=== PATIENT | female | born 1940 | race Caucasian/White ===

== ENCOUNTER 2017-02-27 12:49 | Outpatient (CLI) | payer MEDICARE | END 2017-02-27 12:50 | disposition home or self-care (01) | LOC: NC 12:49 | PROVIDERS: ATTEND Nurse Practitioner Family | DX: I25.10 Atherosclerotic heart disease of native coronary artery without angina pectoris (principal); Z71.3 Dietary counseling and surveillance; E66.09 Other obesity due to excess calories; Z68.35 Body mass index [BMI] 35.0-35.9, adult; K21.9 Gastro-esophageal reflux disease without esophagitis; G89.29 Other chronic pain ==

== ENCOUNTER 2017-03-26 16:43 | Emergency (ER) | payer MEDICARE ==
[2017-03-26] MEDS ORDERED: IOPAMIDOL 370 (76%) IV.SOLN 150 ML IV ONE (16:44)
[2017-03-26] MEDS ORDERED: ASPIRIN CHEWTAB 81 MG TABLET ONE (17:13)
[2017-03-26 17:21] LABS: ABSOLUTE NEUTROPHIL COUNT 4.1 K/mm3 (1.8-7.7); BASO # 0.1 K/mm3 (0.0-0.2); BASO % 0.5 % (0.2-1.0); EOS # 0.3 (0.0-0.5); EOS % 2.5 % (0.9-2.9); HEMATOCRIT 44.2 % (37.0-47.0); HEMOGLOBIN 14.2 gm/l (12.0-16.0); IMM NEUT% 0.2 % (0-1); LYMPH # 6.6 (1.0-4.8); LYMPH % 55.2 % (15-45); MEAN CELL VOLUME 90.2 fl (81.0-99.0); MEAN CORPUSCULAR HGB CONC 32.1 g/dl (33.0-37.0); MEAN PLATELET VOLUME 9.9 fl (7.4-10.4); MONO # 0.9 (0.0-0.8); MONO % 7.7 % (4-12); NEUT % 33.9 % (43-75); PLATELET COUNT 238 K/mm3 (130-400); RED CELL DISTRIBUTION WIDTH 12.8 % (11.5-14.5)
[2017-03-26 17:31] LABS: ALB/GLOB RATIO 1.8 (>1.0); CALCIUM 9.9 mg/dL (8.6-10.3); MAGNESIUM 1.9 mg/dL (1.9-2.7)
[2017-03-26 17:37] LABS: TROPONIN I < 0.01 ng/ml (0.0-0.06)
[2017-03-26 17:40] LABS: CKMB ISOENZYME 1.7 ng/ml (0.6-6.3)
--- NOTE | 2017-03-26 19:29 | CT ---
CHEST ABDOMEN PELVIS CT WITH CONTRAST HISTORY: Chest pain, history of aortic aneurysm, assess for dissection. TECHNIQUE: Following the administration of 150 mL of Isovue-300 70 intravenous contrast, contiguous axial images were acquired from the thoracic inlet to the ischial tuberosities. MIP reconstruction imaging was performed. COMPARISON: 01/15/2017. FINDINGS: THORAX LUNGS: Minor groundglass abnormality which may simply reflect atelectatic change no gross airspace disease or pleural effusion.. ELVIS AND MEDIASTINUM: Aneurysmal dilatation of the ascending aorta, up to 5.0 cm in size, measuring up to 4.7 cm in size previously. Taking into account cardiac motion artifact. No dissection flap is noted minor atherosclerotic calcifications are noted. Ascending thoracic aortic caliber is 3.5 cm in width. No grossly enlarged lymph nodes are evident.. Normal enhancement of proximal order pulmonary arteries. AXILLAE: Redemonstration of multiple axillary lymph nodes the largest of which measures 1.8 cm on the left.. SUPRACLAVICULAR FOSSAE: No enlarged lymph nodes. ABDOMEN AND PELVIS LIVER AND SPLEEN: No focal lesion detected. ADRENAL GLANDS AND PANCREAS: Fatty left adrenal adenoma, stable appearance. KIDNEYS: Minor exophytic cyst formation, up to 16 mm in size on the right, 9 mm in size on the left. No gross collecting system dilatation. GALLBLADDER: Present. BOWEL: Findings of colonic diverticulosis without features of diverticulitis. No abnormal small bowel dilatation. Normal partially gas-filled appendix . PELVIC ORGANS: No gross mass effect. FREE FLUID: No gross free fluid identified. ABDOMINOPELVIC LYMPH NODES: No abnormally enlarged lymph nodes identified. ABDOMINAL AORTA: Tortuous, ectatic abdominal aorta and common iliac arteries without eric aneurysmal dilatation, maximal aortic caliber is approximately 2.9 cm in width. No dissection flap. Minor atherosclerotic calcifications. 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 With multilevel canal stenosis most notable at L3-4 and L4-5 levels. IMPRESSION: 1. Aneurysmal dilatation of the ascending aorta up to 5.0 cm in size without evidence of dissection. Abdominal aortic ectasia without aneurysmal dilatation. 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 2. No gross airspace disease. 3. Additional incidental findings including features of colonic diverticulosis, small renal cysts, and features of lumbar spondylosis. Results were electronically transmitted to the electronic medical record at 03/26/2017 at 1924 hours.
[2017-03-26] MEDS ORDERED: AMLODIPINE BESYLATE 5 MG TABLET ONE (19:55)
[2017-03-26 20:38] LABS: URINE BILIRUBIN NEGATIVE (NEGATIVE); URINE BLOOD NEGATIVE (NEGATIVE); URINE GLUCOSE (UA) NEGATIVE (NEGATIVE); URINE LEUKOCYTE ESTERASE 1+ (NEGATIVE); URINE NITRITE NEGATIVE (NEGATIVE); URINE PROTEIN NEGATIVE (NEGATIVE); URINE UROBILINOGEN NORMAL (0-1 mg/dl)
[2017-03-26 21:03] LABS: URINE APPEARANCE CLEAR; URINE COLOR YELLOW
[2017-03-26 21:05] LABS: URINE BACTERIA RARE; URINE EPITHELIAL CELLS 0 /hpf; URINE RBC 0 /hpf
== END 2017-03-26 21:08 | disposition short-term general hospital (02) ==
LOC: ED 16:43
DX: R07.9 Chest pain, unspecified (principal); I71.9 Aortic aneurysm of unspecified site, without rupture; I10 Essential (primary) hypertension
CPT/HCPCS: 83880; 85025; 82553; 87086; 80053; 83735; 84484; 81001; 74174; 71275; 99285 ×2; 93005; A9270 ×2; Q9967